=== PATIENT | male | born 1960 | race Caucasian/White ===

== ENCOUNTER 2020-05-23 20:28 | Inpatient (IN) | payer OTHER ==
[~2020-05-23] VITALS: Ht 193 cm; Wt 136.9 kg
[2020-05-23 20:50] LABS: BASOPHILS % (AUTO) 0.5 % (0.0-5.0); EOSINOPHILS % (AUTO) 2.9 % (0.0-8.0); LYMPHOCYTES % (AUTO) 24.6 % (21.0-51.0); MEAN CORPUSCULAR HEMOGLOBIN 31.2 pg (27.0-33.0); MEAN CORPUSCULAR HGB CONC 35.4 g/dL (32.0-36.0); MEAN CORPUSCULAR VOLUME 88.1 fL (79-99); NEUTROPHILS % (AUTO) 64.7 % (40.0-77.0); PLATELET COUNT (AUTO) 364 K/uL (130-400); RED BLOOD CELL COUNT(AUTO) 5.22 MIL/uL (4.50-6.20); RED CELL DISTRIBUTION WIDTH 12.3 % (11.0-15.5); WHITE BLOOD COUNT (AUTO) 12.8 K/uL (4.8-10.8)
[2020-05-23] MEDS ORDERED: MORPHINE SULFATE 4 MG/1ML SYG ONE (20:58)
[2020-05-23] MEDS ORDERED: ONDANSETRON HCL 4 MG/2 ML VIAL ONE (20:58)
[2020-05-23 21:01] LABS: CREATININE 1.4 mg/dL (0.5-1.5); POTASSIUM 3.6 mmol/L (3.5-5.1)
[2020-05-23 21:06] LABS: ALBUMIN 4.1 g/dL (3.5-5.0); BILIRUBIN,DIRECT 0.1 mg/dL (0.0-0.3); BILIRUBIN,TOTAL 0.3 mg/dL (0.2-1.0); TOTAL PROTEIN, SERUM 7.9 g/dL (6.0-8.3)
[2020-05-23 21:06] LABS: BILIRUBIN,URINE SMALL (NEGATIVE); COLOR,URINE YELLOW (YELLOW); GLUCOSE, URINE (UA) NEGATIVE (NEGATIVE); KETONES,URINE NEGATIVE (NEGATIVE); LEUKOCYTE ESTERASE ,URINE NEGATIVE (NEGATIVE); NITRATE,URINE NEGATIVE (NEGATIVE); OCCULT BLOOD,URINE NEGATIVE (NEGATIVE); PH,URINE 5.5 (5.0-8.0); PROTEIN,URINE TRACE mg/dL (NEGATIVE)
[2020-05-23 21:17] LABS: APPEARANCE,URINE HAZY (CLEAR)
[2020-05-23 21:35] LABS: RBC,URINE None Seen /HPF (0-1); WBC,URINE None Seen /HPF (0-1)
[2020-05-23 21:36] LABS: BACTERIA,URINE Rare /HPF (None Seen); CALCIUM OXALATE CRYSTALS,UR Many /LPF (None Seen); MUCUS,URINE Many LPF (None Seen); SQUAMOUS EPITHELIAL CELL,UR None Seen /HPF (0-2)
[2020-05-23] MEDS ORDERED: LIDOCAINE HCL 2% JELLY 5 ML ONE (22:44)
[2020-05-23] MEDS ORDERED: LIDOCAINE HCL 2% VISCOUS 15 ML UDCUP ONE (22:49)
[2020-05-23] MEDS ORDERED: HYDRALAZINE HCL 20 MG/ML VIAL IV PRN (23:00)
[2020-05-23] MEDS ORDERED: LIDOCAINE HCL-MPF 1% 2ML VIAL IV PRN (23:00)
[2020-05-23] MEDS ORDERED: ONDANSETRON HCL 4 MG/2 ML VIAL IVP PRN (23:00)
[2020-05-23] MEDS ORDERED: POTASSIUM CHLORIDE 20MEQ/100ML 100 ML IV PRN (23:00)
[2020-05-23] MEDS ORDERED: DiphenhydrAMINE HCL 50 MG/ML VIAL IV PRN (23:00)
[2020-05-23] MEDS ORDERED: MORPHINE SULFATE 4 MG/1ML SYG IM PRN (23:00)
[2020-05-24] MEDS ORDERED: DIATR MEGLU/DIATRIZOATE SODIUM 30 ML BOTTLE ONE (00:31)
[2020-05-24] MEDS ORDERED: SODIUM CHLORIDE 0.9% 1000ML 1,000 ML IV ONE (07:21)
[2020-05-24] MEDS: SODIUM CHLORIDE 0.9% 1000ML 1,000 ML IV SCH ×2 (08:53→18:53)
[2020-05-24] MEDS: FAMOTIDINE/PF 20 MG/2 ML VIAL IV SCH ×2 (09:00→21:38)
[2020-05-24] MEDS ORDERED: LACTATED RINGERS 1000ML 1,000 ML IV ONE (09:39)
[2020-05-24] MEDS ORDERED: FAMOTIDINE/PF 20 MG/2 ML VIAL IV ONE (09:41)
[2020-05-24] MEDS: LACTATED RINGERS 1000ML 1,000 ML IV SCH ×2 (09:45→17:47)
[2020-05-24] MEDS: ZOSYN 3.375GM+NS 50ML 50 ML IV SCH ×2 (12:30→21:38)
[2020-05-24 12:49] VITALS: BP 101/74
[2020-05-24 16:29] VITALS: BP 115/77
--- NOTE | 2020-05-24 18:05 | NUR ---
PATIENT IS VERY CONCERNED ABOUT BEING DEHYDRATED, EVEN THOUGH HE RECEIVED A BOLUS IN ER AND HE'S AT 125 ML/HR 1/2 NS.
[2020-05-24] MEDS ORDERED: SODIUM CHLORIDE 0.9% 500ML 500 ML IV SCH (18:30)
--- NOTE | 2020-05-24 19:14 | NUR ---
SPOKE TO RALEIGH FARIAS FROM [facility]. NEW ORDERS RECEIVED FOR 500 CC BOLUS NS. I WENT INTO THE PATIENT'S TO ADMINISTERED THE BOLUS, I NOTICED THAT THE IV FLUID RATE WAS CHANGED TO 160 ML/HR. I ASKED THE PATIENT IF HE HAD CHANGED THE FLUIDS, HOWEVER HE DENIED IT AND GOT DEFENSIVE. I CHANGED THE RATE BACK TO 125 ML/HR, MOVED THE IV PUMP AWAY FROM THE BED AND INFORMED THE SOFTWARE LICENSING ANALYST NURSE JOSE, WELL CHARGE NURSE BRITTON,.
[2020-05-24 20:17] VITALS: BP 119/84
[2020-05-24 23:40] VITALS: BP 116/78
[2020-05-25] MEDS: LACTATED RINGERS 1000ML 1,000 ML IV SCH ×3 (01:22→17:35)
[2020-05-25 03:47] VITALS: BP 125/76
[2020-05-25 04:38] LABS: HEMATOCRIT 40.1 % (42-54); MEAN CORPUSCULAR HEMOGLOBIN 30.8 pg (27.0-33.0); MEAN CORPUSCULAR HGB CONC 33.9 g/dL (32.0-36.0); MEAN CORPUSCULAR VOLUME 90.7 fL (79-99); RED BLOOD CELL COUNT(AUTO) 4.42 MIL/uL (4.50-6.20); RED CELL DISTRIBUTION WIDTH 12.4 % (11.0-15.5); WHITE BLOOD COUNT (AUTO) 7.4 K/uL (4.8-10.8)
[2020-05-25 04:44] LABS: CREATININE 1.3 mg/dL (0.5-1.5); POTASSIUM 3.8 mmol/L (3.5-5.1)
[2020-05-25] MEDS: SODIUM CHLORIDE 0.9% 1000ML 1,000 ML IV SCH ×2 (04:53→14:53)
[2020-05-25] MEDS: ZOSYN 3.375GM+NS 50ML 50 ML IV SCH ×2 (05:06→13:40)
[2020-05-25 08:00] VITALS: BP 114/78
[2020-05-25] MEDS: FAMOTIDINE/PF 20 MG/2 ML VIAL IV SCH (08:39)
[2020-05-25 11:56] VITALS: BP 112/78
[2020-05-25] MEDS ORDERED: DOCU-116 PO (13:13)
--- NOTE | 2020-05-25 13:45 | NUR ---
D/C PLAN CM spoke to pt regarding d/c planning. Pt is [place] and lives with spouse. Denies having any home health or provider services. States he is active and denies having any DME. Spouse can assist in care if needed. Plan to home. CM to f/u. Addendum: 05/25/20 at 1817 by LACIE STAHL CM Amended: Links added.
[2020-05-25 16:00] VITALS: BP 123/79
== END 2020-05-25 17:40 | disposition home or self-care (01) | DRG 683 ==
LOC: EDH 20:28 → EDHIP 22:53 → OBSVTOIN 22:53 → 3BH 05-24 12:03
PROVIDERS: ADMIT Internal Medicine Critical Care Medicine; ATTEND Internal Medicine Critical Care Medicine
PROC: 0D9670Z Drainage of Stomach with Drainage Device, Via Natural or Artificial Opening (ICD-10-PCS; principal; 2020-05-24)
DX: N17.9 Acute kidney failure, unspecified (principal); K56.609 Unspecified intestinal obstruction, unspecified as to partial versus complete obstruction; E86.0 Dehydration; D72.829 Elevated white blood cell count, unspecified
CPT/HCPCS: 36415; 71045; 74176; 76705; 80048; 80076; 81001; 82550; 82948; 83690; 84484; 85025; 85027; 93005; G0378; J2270; J2405; J2543; J3490; J7030; J7040; J7120; Q9963